=== PATIENT | male | born 1960 | race Caucasian/White ===

== ENCOUNTER 2016-10-08 14:41 | Emergency (ER) | payer OTHER ==
[~2016-10-08] VITALS: Ht 175.3 cm; Wt 104.0 kg
[2016-10-08] MEDS ORDERED: SIMVASTATIN10 MG PO (15:11)
[2016-10-08] MEDS ORDERED: KEFLEX500 MG PO (16:07)
[2016-10-08 16:15] VITALS: BP 147/89
== END 2016-10-08 16:15 | disposition home or self-care (01) | DRG 605 ==
LOC: ED 14:41
PROC: 0HQFXZZ Repair Right Hand Skin, External Approach (ICD-10-PCS; principal; 2016-10-08)
DX: S61.210A Laceration without foreign body of right index finger without damage to nail, initial encounter (principal); W25.XXXA Contact with sharp glass, initial encounter; Y93.G1 Activity, food preparation and clean up; Y92.120 Kitchen in nursing home as the place of occurrence of the external cause

== ENCOUNTER 2016-10-18 13:23 | Emergency (ER) | payer OTHER ==
[~2016-10-18] VITALS: Ht 175.3 cm; Wt 105.0 kg
[~2016-10-18 13:23] MED LIST: KEFLEX500 MG PO; SIMVASTATIN10 MG PO
[2016-10-18 13:50] VITALS: BP 151/84
== END 2016-10-18 13:50 | disposition home or self-care (01) | DRG 950 ==
LOC: ED 13:23
DX: S61.210D Laceration without foreign body of right index finger without damage to nail, subsequent encounter (principal); X58.XXXD Exposure to other specified factors, subsequent encounter